=== PATIENT | male | born 1995 | race American Indian/Alaskan Native ===

== ENCOUNTER 2016-04-27 08:27 | Emergency (ER) | payer OTHER ==
[2016-04-27] MEDS ORDERED: ROCEPHIN IM ONE (12:55)
[2016-04-27] MEDS ORDERED: XYLOCAINE 1% MPF 5 mL INFILTRATI ONE (12:55)
[2016-04-27] MEDS ORDERED: FLAGYL PO ONE (12:55)
--- NOTE | 2016-04-27 12:55 | Emergency Department Report ---
ED Male HPI - General Chief complaint: Urogenital-Male Stated complaint: PENILE DISCHARGE Time Seen by Provider: 04/27/16 12:46 Source: patient Mode of arrival: Ambulatory Limitations: No Limitations - History of Present Illness Initial comments: Patient here complaining of penile discharge and burning 2 days. He said he had unprotected sex with a girl and she called them to let them know that he should go get checked out. He reports penile discharge is white. Denies any blood in his urine. Denies any fever or chills. Denies any urinary burning frequency or urgency. Denies any back or abdominal pain. Reports been going on for 2 days. Had an unprotected sex 4 days ago. He reports burning to his penile area at 6 out of 10. MD Complaint: penile discharge Onset/Timin -: days(s) Location: penis Radiation: none Severity scale (0 -10): 6 Quality: burning Consistency: constant Worsens with: none new sexual partner discharge. denies: swelling, mass, rash, urinary retention, blood in urine, dysuria, fever, nausea/vomiting, incontinence - Related Data Sexually active: Yes Allergies Allergy/AdvReac Type Severity Reaction Status Date / Time No Known Allergies Allergy Unverified 04/27/16 09:54 ED Review of Systems ROS: Stated complaint: PENILE DISCHARGE Other details as noted in HPI Comment: All other systems reviewed and negative Constitutional: denies: chills, fever ENT: denies: throat pain Respiratory: no symptoms reported Cardiovascular: denies: chest pain, palpitations, edema, syncope Gastrointestinal: denies: abdominal pain, nausea, vomiting Genitourinary: discharge. denies: urgency, dysuria, frequency, hematuria, testicular pain, testicular mass Musculoskeletal: denies: back pain, arthralgia Skin: denies: rash Neurological: denies: headache, weakness, numbness, paresthesias, confusion, abnormal gait ED Past Medical Hx - Past Medical History Previous Medical History?: No - Surgical History Past Surgical History?: No - Family History Family history: no significant - Social History Smoking Status: Never Smoker Substance Use Type: Alcohol ED Physical Exam - General Limitations: No Limitations General appearance: alert, in no apparent distress - Head Head exam: Present: atraumatic, normocephalic, normal inspection - Eye Eye exam: Present: normal appearance, PERRL, EOMI. Absent: periorbital swelling , periorbital tenderness Pupils: Present: normal accommodation - ENT ENT exam: Present: normal exam, normal orophraynx - Respiratory Respiratory exam: Present: normal lung sounds bilaterally. Absent: respiratory distress, chest wall tenderness - Cardiovascular Cardiovascular Exam: Present: regular rate, normal rhythm, normal heart sounds - GI/Abdominal GI/Abdominal exam: Present: soft, normal bowel sounds. Absent: distended, tenderness, guarding, rebound, rigid - exam: Present: normal inspection, urethral discharge. Absent: testicular tenderness, scrotal swelling, vertical testicular lie, other External exam: Present: normal external exam. Absent: erythema, swelling, lesions, lacerations, ecchymosis, bleeding - Extremities Exam Extremities exam: Present: normal inspection, full ROM, normal capillary refill. Absent: tenderness, pedal edema, joint swelling, calf tenderness - Back Exam Back exam: Present: normal inspection, full ROM. Absent: tenderness, CVA tenderness (R), CVA tenderness (L), muscle spasm, paraspinal tenderness, vertebral tenderness, rash noted - Neurological Exam Neurological exam: Present: alert, oriented X3, normal gait, reflexes normal. Absent: motor sensory deficit - Psychiatric Psychiatric exam: Present: normal affect, normal mood - Skin Skin exam: Present: warm, dry, intact, normal color. Absent: rash ED Course Vital Signs 04/27/16 04/27/16 09:45 13:46 Temperature 98.6 F Pulse Rate 64 61 Respiratory 19 16 Rate Blood Pressure 128/91 Blood Pressure 124/90 [Left] O2 Sat by Pulse 100 100 Oximetry - Reevaluation(s) Reevaluation #1: 04/27/16 13:28 Rocephin 250 mg im, flagyl 2grams and zithromaz 1 gram po for treatment of STD ED Medical Decision Making - Medical Decision Making Patient here reports penile discharge and burning to penis. He said he had unsafe sex and the person that he had sex with told him that he needs to go get checked out but didn't say whether or not they had a STD. Patient off to be treated empirically in emergency room for STD. Patient give Rocephin 250 mg IM , Flagyl 2 g by mouth and Zithromax 1 g by mouth in emergency room. Should instructed to refrain from drinking alcohol for 7 days as medication that he was given for STD can cause negative reaction. As instructed him to refrain from having sexual activity for the next 10 days. The patient that he needs to follow up with [facility] for STD check in 7-10 days. He voices understanding of discharge instruction discharged home in stable condition without any adverse reaction from medication Critical care attestation.: If time is entered above; I have spent that time in minutes in the direct care of this critically ill patient, excluding procedure time. ED Disposition Clinical Impression: Penile discharge, Concern about STD in male without diagnosis Disposition: DISCHARGED TO HOME OR SELFCARE Is pt being admited?: No Does the pt Need Aspirin: No Condition: Stable Instructions: Sexually Transmitted Diseases (ED), Safe Sex (ED) Additional Instructions: Please do drink any alcohol over the next week. Medication given in ED interacts negatively with alcohol Refrain from having sex over the next 10 days. follow up at [facility] in 7-10 days for STD check Referrals: [facility] [Outside] - 7-10 days Forms: Work/School Release Form(ED)
[2016-04-27] MEDS ORDERED: ZITHROMAX PO ONE (12:57)
[2016-04-27 13:48] VITALS: BP 124/90
== END 2016-04-27 13:46 | disposition home or self-care (01) ==
LOC: ED 08:27
DX: R36.9 Urethral discharge, unspecified (principal)
CPT/HCPCS: 96372; 99282; J0696

== ENCOUNTER 2016-12-03 07:21 | Emergency (ER) | payer SELFPAY ==
--- NOTE | 2016-12-03 09:51 | Emergency Department Report ---
HPI - General Chief Complaint: Allergic Reaction Time Seen by Provider: 12/03/16 09:36 - HPI HPI: Patient here report allergic reaction. He said he has been stung by wasp 2 days ago. Denies any respiratory symptoms. He said he is having swelling to left hand and right calf and left thigh. Denies any wheezing, stridor, or difficulty swallowing. He reports that he was having some throat tightness in triage area but denies any throat tightness to me. Denies any fever or chills. Denies any nausea or vomiting. Denies any shortness of breath or chest pain. He denies taking any medication. Patient said he has no pain. ED Past Medical Hx - Past Medical History Previous Medical History?: No - Surgical History Past Surgical History?: No - Family History Family history: no significant - Social History Smoking Status: Never Smoker Substance Use Type: None - Medications Home Medications: Home Medications Medication Instructions Recorded Confirmed Last Taken Type Cetirizine HCl [ZyrTEC] 10 mg PO QAM #5 capsule 12/03/16 Unknown Rx predniSONE [Deltasone] 50 mg PO QDAY #5 tab 12/03/16 Unknown Rx ED Review of Systems ROS: Stated complaint: INSECT STING ALLERGIC REACTION Other details as noted in HPI Comment: All other systems reviewed and negative Constitutional: no symptoms reported Eyes: denies: eye pain, eye discharge, vision change ENT: denies: ear pain, throat pain, congestion Respiratory: no symptoms reported Cardiovascular: denies: chest pain, palpitations, edema, paroxysmal nocturnal dyspnea Gastrointestinal: denies: abdominal pain, nausea, vomiting Musculoskeletal: arthralgia. denies: back pain, joint swelling, myalgia Skin: rash, other (swollen and itching in 2 left hand left thigh and right calf area) Neurological: denies: headache Physical Exam - Physical Exam Vital Signs: Vital Signs 12/03/16 07:24 Temperature 97.8 F Pulse Rate 52 L Blood Pressure 127/89 O2 Sat by Pulse 100 Oximetry Vital Signs 12/03/16 12/03/16 07:24 12:05 Temperature 97.8 F Pulse Rate 52 L Respiratory 18 Rate Blood Pressure 127/89 O2 Sat by Pulse 100 Oximetry General: This is a 21-year-old male well-nourished well-developed in no acute distress. Physical Exam: Head: Normocephalic, atraumatic, no abrasion, no bruising and no contusion. Eyes: Biateral pupils equal and reactive to light, bilateral EOM intact.. Bilateral conjunctival and sclera without injection, normal accommodation. Nose: Moist, erythema and congested with clear drainage Mouth: No pharyngeal exudate and erythema. Uvula is midline and oral airways patent. tongue is normal and no peritonsillar abscesses. Neck: Supple, No Cervical adenopathy, full range of motion and no C-spine tenderness. No swelling or tracheal deviation Cardiovascular: S1, S2. Bradycardic at 52 bpm and asymptomatic. Regular rhythm. No murmur. Capillary refill is less then 3 seconds. Lungs: Clear to auscultate bilaterally. No rhonchi, wheezes or rales. No chest wall tenderness. Normal work of breathing. MSK: Strength 5/5 in all extremities. No joint deformity or crepitus. Normal inspection. Full range of motion to all extremities Extremities: No clubbing, cyanosis or edema. +2 pulses. No neurovascular compromise Skin: Noted sparsely scattered small urticarial area to left hand left thigh and right calf area. Nontender to palpate. Psych: Normal mood and behavior. ED Course Vital Signs 12/03/16 07:24 Temperature 97.8 F Pulse Rate 52 L Blood Pressure 127/89 O2 Sat by Pulse 100 Oximetry Vital Signs 12/03/16 12/03/16 07:24 12:05 Temperature 97.8 F Pulse Rate 52 L Respiratory 18 Rate Blood Pressure 127/89 O2 Sat by Pulse 100 Oximetry - Reevaluation(s) Reevaluation #1: 12/03/16 12:12 She received Deltasone 60 mg by mouth in the emergency room for allergic reaction. ED Medical Decision Making - Medical Decision Making ED course: Status post wasp sting 2 days ago and here for evaluation. Physical findings for her to care area to left hand left thigh and left calf area. Single isolated lesions with point of entry to Center. Patient was given prednisone 60 mg by mouth and emergency room and discharged home with prescription for Zyrtec and prednisone. I discussed with him if he develop respiratory difficulties to include shortness breath, chest pain, stridor or wheezing, coughing sole of the neck and tongue and difficulty swallowing to return to the emergency room [facility] otherwise follow up with his primary care physician in 2 days. He does not have a primary care physician so he can follow up with [facility]. Critical care attestation.: If time is entered above; I have spent that time in minutes in the direct care of this critically ill patient, excluding procedure time. ED Disposition Clinical Impression: Urticaria Insect bite Qualifiers: Encounter type: initial encounter Qualified Code(s): W57.XXXA - Bitten or stung by nonvenomous insect and other nonvenomous arthropods, initial encounter Disposition: DC- TO HOME OR SELFCARE Is pt being admited?: No Does the pt Need Aspirin: No Condition: Stable Instructions: Urticaria (ED), Insect Bite or Sting (ED) Additional Instructions: Keep affected area clean and dry Follow up [facility] in the days Take medication as prescribed Prescriptions: Cetirizine HCl [ZyrTEC] 10 mg PO QAM #5 capsule predniSONE [Deltasone] 50 mg PO QDAY #5 tab Referrals: [facility] [place] [Outside] - 12/06/16 Forms: Work/School Release Form(ED)
[2016-12-03] MEDS ORDERED: DELTASONE PO ONE (10:53)
[2016-12-03 12:28] VITALS: BP 128/89
== END 2016-12-03 12:29 | disposition home or self-care (01) ==
LOC: ED 07:21
DX: L50.0 Allergic urticaria (principal); W57.XXXA Bitten or stung by nonvenomous insect and other nonvenomous arthropods, initial encounter
CPT/HCPCS: 99282; J7512

== ENCOUNTER 2017-08-28 10:09 | Emergency (ER) | payer SELFPAY ==
[2017-08-28 10:20] VITALS: BP 130/92
--- NOTE | 2017-08-28 10:55 | Emergency Department Report ---
Chief Complaint: Skin Rash Stated Complaint: RASH Time Seen by Provider: 08/28/17 10:28 - HPI History of Present Illness: Patient is a 21-year-old -[place] male who has a itching burning rash on his neck is been present off-and-on for 3-6 months. Patient states he was itching today he has not tried anything [id number] patient denies any fevers chills nausea vomiting diarrhea. - ROS Review of Systems: Systems are reviewed and are negative - Exam Vital Signs: Vital Signs 08/28/17 10:19 Temperature 98.8 F Pulse Rate 62 Respiratory 16 Rate Blood Pressure 130/92 O2 Sat by Pulse 100 Oximetry Physical Exam: Patient has a hypopigmented rash on the anterior and posterior neck extending into the upper chest MSE screening note: Focused history and physical exam performed. 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 Also try hydrocortisone cream on this area as well. Referrals: [facility] [Outside] - 3-5 Days
== END 2017-08-28 11:02 | disposition left against medical advice (07) ==
LOC: ED 10:09
DX: B36.0 Pityriasis versicolor (principal); Z53.21 Procedure and treatment not carried out due to patient leaving prior to being seen by health care provider

== ENCOUNTER 2019-01-01 09:10 | Emergency (ER) | payer OTHER ==
[2019-01-01 09:43] VITALS: BP 147/99
[2019-01-01] MEDS ORDERED: FAMOTIDINE 20 MG TAB PO ONE (11:48)
--- NOTE | 2019-01-01 11:52 | Emergency Department Report ---
ED Abdominal Pain HPI - General Chief Complaint: Abdominal Pain Stated Complaint: KIDNEY/STOMACH PAIN Time Seen by Provider: 01/01/19 10:39 Source: patient Mode of arrival: Ambulatory Limitations: No Limitations - History of Present Illness Initial Comments: This is a 23-year-old -[place] male who presents to the emergency room with left-sided abdominal pain for several months. He reports worsening pain for one week. Reports nausea, vomiting, diarrhea, and urinary frequency. He is currently taking NSAIDs with no improvement of symptoms. Patient states he has several abdominal workups with no diagnosis. 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 He denies fever, chills, hematuria, dysuria, penile discharge, or back pain. MD Complaint: abdominal pain Onset/Timin -: week(s) Location: L flank Radiation: epigastric Migration to: no migration Severity scale (0 -10): 9 Quality: cramping, burning Consistency: intermittent Improves With: nothing Worsens With: eating Associated Symptoms: denies other symptoms Treatments Prior to Arrival: NSAIDs - Related Data Previous Rx's Medication Instructions Recorded Last Taken Type Cetirizine HCl [ZyrTEC] 10 mg PO QAM #5 capsule 12/03/16 Unknown Rx predniSONE [Deltasone] 50 mg PO QDAY #5 tab 12/03/16 Unknown Rx Omeprazole 40 mg PO DAILY #30 capsule. 01/01/19 Unknown Rx Allergies Allergy/AdvReac Type Severity Reaction Status Date / Time No Known Allergies Allergy Verified 08/28/17 10:19 ED Review of Systems ROS: Stated complaint: KIDNEY/STOMACH PAIN Other details as noted in HPI Constitutional: denies: chills, fever Respiratory: denies: cough, shortness of breath, wheezing Cardiovascular: denies: chest pain, palpitations Gastrointestinal: abdominal pain, nausea, vomiting, diarrhea Genitourinary: frequency. denies: urgency, dysuria Skin: denies: rash, lesions Neurological: denies: headache, weakness, paresthesias Psychiatric: denies: anxiety, depression ED Past Medical Hx - Past Medical History Previous Medical History?: No - Surgical History Past Surgical History?: No - Social History Smoking Status: Current Every Day Smoker Substance Use Type: Alcohol - Medications Home Medications: Home Medications Medication Instructions Recorded Confirmed Last Taken Type Cetirizine HCl [ZyrTEC] 10 mg PO QAM #5 capsule 12/03/16 Unknown Rx predniSONE [Deltasone] 50 mg PO QDAY #5 tab 12/03/16 Unknown Rx Omeprazole 40 mg PO DAILY #30 capsule. 01/01/19 Unknown Rx ED Physical Exam - General Limitations: No Limitations General appearance: alert, in no apparent distress - Respiratory Respiratory exam: Present: normal lung sounds bilaterally. Absent: respiratory distress, wheezes, rales, rhonchi, stridor, chest wall tenderness - Cardiovascular Cardiovascular Exam: Present: regular rate, normal rhythm. Absent: systolic murmur, diastolic murmur, rubs, gallop - GI/Abdominal GI/Abdominal exam: Present: soft, tenderness (LUQ), normal bowel sounds. Absent: distended, guarding, rebound, rigid, organomegaly - Back Exam Back exam: Absent: CVA tenderness (R), CVA tenderness (L) - Neurological Exam Neurological exam: Present: alert, oriented X3 - Psychiatric Psychiatric exam: Present: normal affect, normal mood - Skin Skin exam: Present: warm, dry, intact, normal color. Absent: rash ED Course Vital Signs 01/01/19 01/01/19 09:39 11:34 Temperature 97.8 F Pulse Rate 103 H Respiratory 20 Rate Blood Pressure 147/99 O2 Sat by Pulse 100 99 Oximetry ED Medical Decision Making - Lab Data Result diagrams: 01/01/19 12:06 01/01/19 12:06 Lab Results 01/01/19 01/01/19 Range/Units 12:06 12:06 WBC 3.2 L (4.5-11.0) K/mm3 RBC 5.51 H (3.65-5.03) M/mm3 Hgb 15.8 H (11.8-15.2) gm/dl Hct 47.1 H (35.5-45.6) % MCV 86 (84-94) fl MCH 29 (28-32) pg MCHC 34 (32-34) % RDW 13.4 (13.2-15.2) % Plt Count 242 (140-440) K/mm3 Lymph % (Auto) 43.3 H (13.4-35.0) % [place] % (Auto) 6.2 (0.0-7.3) % Eos % (Auto) 4.9 H (0.0-4.3) % Baso % (Auto) 2.0 H (0.0-1.8) % Lymph # 1.4 (1.2-5.4) K/mm3 [place] # 0.2 (0.0-0.8) K/mm3 Eos # 0.2 (0.0-0.4) K/mm3 Baso # 0.1 (0.0-0.1) K/mm3 Seg Neutrophils % 43.6 (40.0-70.0) % Seg Neutrophils # 1.4 L (1.8-7.7) K/mm3 Sodium 143 (137-145) mmol/L Potassium 4.5 (3.6-5.0) mmol/L Chloride 99.3 (98-107) mmol/L Carbon Dioxide 27 (22-30) mmol/L Anion Gap 21 mmol/L BUN 8 L (9-20) mg/dL Creatinine 0.9 (0.8-1.5) mg/dL Estimated GFR > 60 ml/min BUN/Creatinine Ratio 9 % Glucose 103 H (75-100) mg/dL Calcium 9.9 (8.4-10.2) mg/dL Total Bilirubin 0.50 (0.1-1.2) mg/dL AST 28 (5-40) units/L ALT 16 (7-56) units/L Alkaline Phosphatase 80 (35-129) units/L Total Protein 8.6 H (6.3-8.2) g/dL Albumin 5.5 H (3.9-5) g/dL Albumin/Globulin Ratio 1.8 % - EKG Data -: No EKG Interpreted by Me (EKG interpreted by the attending) EKG shows normal: sinus rhythm (sinus arrhythmia) - Radiology Data Radiology results: report reviewed CT ABDOMEN AND PELVIS WITHOUT CONTRAST HISTORY: Left-sided abdominal pain COMPARISON: None TECHNIQUE: Routine abdominal and pelvic CT exam performed without contrast. Lack of intravenous contrast limits evaluation of the vascular and solid organs.. All CT scans at this location are performed using CT dose reduction for ALARA by means of automated exposure control. FINDINGS: CT ABDOMEN: Lung Bases: No significant abnormality. Liver: No significant abnormality. Biliary: No significant abnormality. Spleen: No significant abnormality. Unenlarged. Pancreas: No significant abnormality. Adrenals: No significant abnormality. Kidneys: No stones, pelvocaliectasis, ureterectasis. No perinephric or periureteral stranding. Lymphatics: No lymphadenopathy. Vasculature: No significant abnormality. Bowel/Peritoneum: No significant abnormality. No free air. No free fluid. Normal appendix. CT PELVIC: : No significant abnormality. Lymphatics: No lymphadenopathy. Osseous Structures: No aggressive appearing osseous lesions. Additional Findings: None IMPRESSION: 1. No acute findings. No findings to explain left-sided abdominal pain. No urinary stones or hydronephrosis. - Medical Decision Making Patient is stable and was examined by me. Vitals stable. Obtained CMP, CBC, & UA. Leukopenia, All other labs unremarkable. CT of abdomen and pelvis negative for acute findings. Findings are susceptible of viral Palencia enteritis. Given Pepcid while in the ER. Patient reports improvement of symptoms. Start omeprazole. Instructed to take [id number] Imodium if diarrhea recur. Increase fluid intake. Discussed plan with patient and agreed to plan. No further questions noted by the patient. Discharged home in stable condition. F ollow up with PCP in 2-3 days. Critical care attestation.: If time is entered above; I have spent that time in minutes in the direct care of this critically ill patient, excluding procedure time. ED Disposition Clinical Impression: Gastroenteritis Abdominal pain Qualifiers: Abdominal location: generalized Qualified Code(s): R10.84 - Generalized abdomin al pain Disposition: TO HOME OR SELFCARE Is pt being admited?: No Condition: Stable Instructions: Gastroenteritis (ED) Additional Instructions: Frequent hand washing is important to reduce spread. Prompt disinfection of contaminated surfaces with household chlorine bleach- based hoop maker machine and washing of soiled clothing and bedding should be advised. If food or water is thought to be contaminated, it should be avoided. Increase fluid intake. Drinks high in sugars such as carbonated soft drinks, fruit juice, and highly sugared liquids should be avoided. Prescriptions: Omeprazole 40 mg PO DAILY #30 capsule. Referrals: [facility] [place] [Outside] - 3-5 Days [facility] [Outside] - 3-5 Days [facility] [Outside] - 3-5 Days Forms: Work/School Release Form(ED) Time of Disposition: 15:02
[2019-01-01 12:39] LABS: Basophils # (Auto) 0.1 K/mm3 (0.0-0.1); Eosinophils # (Auto) 0.2 K/mm3 (0.0-0.4); Eosinophils % (Auto) 4.9 % (0.0-4.3); Hematocrit 47.1 % (35.5-45.6); Hemoglobin 15.8 gm/dl (11.8-15.2); Lymphocytes # (Auto) 1.4 K/mm3 (1.2-5.4); Lymphocytes % (Auto) 43.3 % (13.4-35.0); Mean Corpuscular HGB Conc 34 % (32-34); Mean Corpuscular Volume 86 fl (84-94); Monocytes # (Auto) 0.2 K/mm3 (0.0-0.8); Monocytes % (Auto) 6.2 % (0.0-7.3); Platelet Count 242 K/mm3 (140-440); Red Blood Count 5.51 M/mm3 (3.65-5.03); Red Cell Distribution Width 13.4 % (13.2-15.2)
[2019-01-01 13:03] LABS: Alanine Aminotransferase 16 units/L (7-56); Albumin 5.5 g/dL (3.9-5); BUN/Creatinine Ratio 9; Blood Urea Nitrogen 8 mg/dL (9-20); Calcium 9.9 mg/dL (8.4-10.2); Hemolysis Index 5
--- NOTE | 2019-01-01 14:46 | Cat Scan Report ---
CT ABDOMEN AND PELVIS WITHOUT CONTRAST HISTORY: Left-sided abdominal pain COMPARISON: None TECHNIQUE: Routine abdominal and pelvic CT exam performed without contrast. Lack of intravenous cont rast limits evaluation of the vascular and solid organs.. All CT scans at this location are performed using CT dose reduction for ALARA by means of automated exposure control. FINDINGS: CT ABDOMEN: Lung Bases: No significant abnormality. Liver: No significant abnormality. Biliary: No significant abnormality. Spleen: No significant abnormality. Unenlarged. Pancreas: No significant abnormality. Adrenals: No significant abnormality. Kidneys: No stones, pelvocaliectasis, ureterectasis. No perinephric or periureteral stranding. Lymphatics: No lymphadenopathy. Vasculature: No significant abnormality. Bowel/Peritoneum: No significant abnormality. No free air. No free fluid. Normal appendix. CT PELVIC: : No significant abnormality. Lymphatics: No lymphadenopathy. Osseous Structures: No aggressive appearing osseous lesions. Additional Findings: None IMPRESSION: 1. No acute findings. No findings to explain left-sided abdominal pain. No urinary stones or hydronep hrosis. Signer Name: Quang Perez MD Signed: 01/01/2019 2:41 PM Workstation Name: [id number]
--- NOTE | 2019-01-02 09:06 | XRay Report ---
CHEST 2 VIEWS INDICATION: Chest Pain. COMPARISON: 01/28/2018 FINDINGS: Support devices: None. Heart: Within normal limits. Lungs: No acute air space or interstitial disease. Pleura: No significant pleural effusion. No pneumothorax. Additional findings: None. IMPRESSION: 1. No acute findings. Signer Name: Yuri Snowden MD Signed: 01/01/2019 10:10 AM Workstation Name: [id number]
== END 2019-01-01 15:14 | disposition home or self-care (01) ==
LOC: ED 09:10
DX: K52.9 Noninfective gastroenteritis and colitis, unspecified (principal); F17.200 Nicotine dependence, unspecified, uncomplicated
CPT/HCPCS: 36415; 71046; 74176; 80053; 85025; 93005; 93010

== ENCOUNTER 2019-07-20 18:33 | Emergency (ER) | payer SELFPAY ==
--- NOTE | 2019-07-20 19:56 | XRay Report ---
CHEST 2 VIEWS 194 INDICATION / CLINICAL INFORMATION: SOB, fever, abdominal pain, duration 2 weeks COMPARISON: 01/01/2019 FINDINGS: SUPPORT DEVICES: None. HEART / MEDIASTINUM: No significant abnormality. LUNGS / PLEURA: No significant pulmonary or pleural abnormality. No pneumothorax. ADDITIONAL FINDINGS: No significant additional findings. IMPRESSION: No significant acute abnormality Signer Name: Albin Abernathy MD Signed: 07/20/2019 7:51 PM Workstation Name: [id number]
--- NOTE | 2019-07-20 21:38 | Emergency Department Report ---
Minor Respiratory - HPI Chief Complaint: Upper Respiratory Infection Stated Complaint: SOB ED Review of Systems ROS: Stated complaint: SOB Other details as noted in HPI ED Past Medical Hx - Past Medical History Previous Medical History?: No - Surgical History Past Surgical History?: No - Social History Smoking Status: Never Smoker Substance Use Type: Alcohol, Marijuana - Medications Home Medications: Home Medications Medication Instructions Recorded Confirmed Last Taken Type Cetirizine HCl [ZyrTEC] 10 mg PO QAM #5 capsule 12/03/16 Unknown Rx predniSONE [Deltasone] 50 mg PO QDAY #5 tab 12/03/16 Unknown Rx Omeprazole 40 mg PO DAILY #30 capsule.dr 01/01/19 Unknown Rx Minor Respiratory Exam - Exam General: Vital signs noted. No distress. Alert and acting appropriately. Neurologic: Alert and oriented, no deficits. Musculoskeletal: Unremarkable. ED Course Vital Signs 07/20/19 18:38 Temperature 98 F Pulse Rate 97 H Respiratory 16 Rate Blood Pressure 136/95 [Right] O2 Sat by Pulse 100 Oximetry ED Medical Decision Making - Radiology Data Radiology results: report reviewed Referring Physician:JEREMÍAS SHARIFPatient Name:SAW POPEPatient ID:[id number] of :[id number]:MaleAccession:[id number] Date:2022-76-74Zwiryl Status:[place] [address] XRay Report Signed Patient: SAW POPE MR#: [id number] : 1995 Acct:[id number] Age/Sex: 23 / M ADM Date: 07/20/19 Loc: ED Attending Dr: Ordering Physician: JEREMÍAS SHARIF MD Date of Service: 07/20/19 Procedure(s): XR chest routine 2V Accession Number(s): [id number] cc: JEREMÍAS SHARIF MD Fluoro Time In Minutes: CHEST 2 VIEWS 1941 INDICATION / CLINICAL INFORMATION: SOB, fever, abdominal pain, duration 2 weeks COMPARISON: 01/01/2019 FINDINGS: SUPPORT DEVICES: None. HEART / MEDIASTINUM: No significant abnormality. LUNGS / PLEURA: No significant pulmonary or pleural abnormality. No pneumothorax. ADDITIONAL FINDINGS: No significant additional findings. IMPRESSION: No significant acute abnormality Signer Name: Albin Abernathy MD Signed: 07/20/2019 7:51 PM Workstation Name: [id number] Transcribed By: GJ Dictated By: Albin Abernathy MD Electronically Authenticated By: Albin Abernathy MD Signed Date/Time: 07/20/191950 DD/ 48 TD/TT: Critical care attestation.: If time is entered above; I have spent that time in minutes in the direct care of this critically ill patient, excluding procedure time. ED Disposition Condition: Stable
--- NOTE | 2019-07-20 21:43 | Emergency Department Report ---
ED General Adult HPI - General Chief complaint: Upper Respiratory Infection Stated complaint: SOB PUI?: No Source: patient Mode of arrival: Ambulatory Limitations: No Limitations - History of Present Illness Initial comments: 23-year-old -[place]ian male presents to the emergency room complaining of abdominal pain disease and shortness of breath. Patient reports his last BM was yesterday but just a little. Patient denies any cough states he just has some shortness of breath but cannot really explain. Patient reports he has been quarantine. Patient does admit to smoking weed and having nausea and vomiting. Patient was recently seen here back in January 01 with a full abdominal work-up with no CT findings of anything acutely. At that time patient was placed on omeprazole and referral to gastroenterology. Patient states he still not f ollowed up with gastroenterology secondary to having no insurance. Patient denies any past medical history. Patient denies any coughing. Patient reports he does not have a primary care provider. And patient reports has been taken Tylenol for back pain. Patient does admit to drinking water and eating vegetables. - Related Data Previous Rx's Medication Instructions Recorded Last Taken Type Cetirizine HCl [ZyrTEC] 10 mg PO QAM #5 capsule 12/03/16 Unknown Rx predniSONE [Deltasone] 50 mg PO QDAY #5 tab 12/03/16 Unknown Rx Omeprazole 40 mg PO DAILY #30 capsule. 01/01/19 Unknown Rx Dicyclomine [Bentyl] 10 mg PO QID #12 capsule 07/20/19 Unknown Rx Docusate Sodium [Colace] 100 mg PO BID PRN 10 Days #20 07/20/19 Unknown Rx capsule Famotidine [Pepcid] 20 mg PO BID 10 Days #20 tablet 07/20/19 Unknown Rx Allergies Allergy/AdvReac Type Severity Reaction Status Date / Time No Known Allergies Allergy Verified 08/28/17 10:19 ED Review of Systems ROS: Stated complaint: SOB Other details as noted in HPI ED Past Medical Hx - Past Medical History Previous Medical History?: No - Surgical History Past Surgical History?: No - Social History Smoking Status: Never Smoker Substance Use Type: Alcohol, Marijuana - Medications Home Medications: Home Medications Medication Instructions Recorded Confirmed Last Taken Type Cetirizine HCl [ZyrTEC] 10 mg PO QAM #5 capsule 12/03/16 Unknown Rx predniSONE [Deltasone] 50 mg PO QDAY #5 tab 12/03/16 Unknown Rx Omeprazole 40 mg PO DAILY #30 capsule. 01/01/19 Unknown Rx Dicyclomine [Bentyl] 10 mg PO QID #12 capsule 07/20/19 Unknown Rx Docusate Sodium [Colace] 100 mg PO BID PRN 10 Days #20 07/20/19 Unknown Rx capsule Famotidine [Pepcid] 20 mg PO BID 10 Days #20 tablet 07/20/19 Unknown Rx ED Physical Exam - General Limitations: No Limitations ED Course Vital Signs 07/20/19 18:38 Temperature 98 F Pulse Rate 97 H Respiratory 16 Rate Blood Pressure 136/95 [Right] O2 Sat by Pulse 100 Oximetry ED Medical Decision Making - Lab Data Result diagrams: 07/20/19 21:55 07/20/19 21:55 - Radiology Data Radiology results: report reviewed Referring Physician:JEREMÍAS SHARIFPatient Name:SAW POPEPatient ID:[id number] of :0722-11-16Rrx:MaleAccession:[id number] Date:0825-48-52Gnoqpb Status:Finalized Findings [facility] [address] [place] [address] XRay Report Signed Patient: SAW POPE MR#: [id number] : 1995 Acct:[id number] Age/Sex: 23 / M ADM Date: 07/20/19 Loc: ED Attending Dr: Ordering Physician: JEREMÍAS SHARIF MD Date of Service: 07/20/19 Procedure(s): XR chest routine 2V Accession Number(s): [id number] cc: ED MD CHANTE Fluoro Time In Minutes: CHEST 2 VIEWS 1941 INDICATION / CLINICAL INFORMATION: SOB, fever, abdominal pain, duration 2 weeks COMPARISON: 01/01/2019 FINDINGS: SUPPORT DEVICES: None. HEART / MEDIASTINUM: No significant abnormality. LUNGS / PLEURA: No significant pulmonary or pleural abnormality. No pneumothorax. ADDITIONAL FINDINGS: No significant additional findings. IMPRESSION: No significant acute abnormality Signer Name: Albin Abernathy MD Signed: 07/20/2019 7:51 PM Workstation Name: [id number] Transcribed By: GJ Dictated By: Albin Abernathy MD Electronically Authenticated By: Albin Abernathy MD Signed Date/Time: 07/20/191950 DD/ 48 TD/TT: Print Report Referring Physician:RAJESH KABAPatient Name:SAW POPEPatient ID:[id number] of :[id number]:MaleAccession:[id number] Date:7524-85-83Qbsdtz Status:Finalized Findings [facility] [address] [place] [address] XRay Report Signed Patient: SAW POPE MR#: [id number] : 1995 Acct:[id number] Age/Sex: 23 / M ADM Date: 07/20/19 Loc: ED Attending Dr: Ordering Physician: DAV CORONA Date of Service: 07/20/19 Procedure(s): XR abdomen 1V ap Accession Number(s): [id number] cc: DAV CORONA Fluoro Time In Minutes: ABDOMEN AP SUPINE 2155 INDICATION: Fever, abdominal pain, shortness of breath, cough COMPARISON: None available. FINDINGS: Bowel gas pattern is unremarkable. Densities in the right pelvis may be ingested tablets though could be artifactual. No definite urinary tract calculi are seen. Signer Name: Albin Abernathy MD Signed: 07/20/2019 10:11 PM Workstation Name: [id number] Transcribed By: GJ Dictated By: Albin Abernathy MD Electronically Authenticated By: Albin Abernathy MD Signed Date/Time: 07/20/192210 DD/ 08 TD/TT: - Medical Decision Making 23-year-old -[place]ian male presents to the emergency room complaining of abdominal pain disease and shortness of breath. Patient reports his last BM was yesterday but just a little. Patient denies any cough states he just has some shortness of breath but cannot really explain. Patient reports he has been quarantine. Patient does admit to smoking weed and having nausea and vomiting. Patient was recently seen here back in January 01 with a full abdominal work-up with no CT findings of anything acutely. At that time patient was placed on omeprazole and referral to gastroenterology. Patient states he still not followed up with gastroenterology secondary to having no insurance. Patient denies any past medical history. Patient denies any coughing. Patient reports he does not have a primary care provider. And patient reports has been taken Tylenol for back pain. Patient does admit to drinking water and eating vegetables. Critical care attestation.: If time is entered above; I have spent that time in minutes in the direct care of this critically ill patient, excluding procedure time. ED Disposition Clinical Impression: Chronic generalized abdominal pain Disposition: TO HOME OR SELFCARE Is pt being admited?: No Does the pt Need Aspirin: No Condition: Stable Instructions: Abdominal Pain (ED) Additional Instructions: Take meds as prescribed. Follow-up with a booky I have listed their information below. I have also entered a primary care provider Dr. Cayetano Cedeno. Prescriptions: Dicyclomine [Bentyl] 10 mg PO QID #12 capsule Docusate Sodium [Colace] 100 mg PO BID PRN 10 Days #20 capsule PRN Reason: Constipation Famotidine [Pepcid] 20 mg PO BID 10 Days #20 tablet Referrals: NEO PAGE MD [Primary Care Provider] - 3-5 Days [facility] [Provider Group] - 3-5 Days VASYL SANCHES MD [Staff Physician] - 3-5 Days
[2019-07-20 22:14] LABS: Basophils # (Auto) 0.1 K/mm3 (0.0-0.1); Basophils % (Auto) 2.8 % (0.0-1.8); Eosinophils # (Auto) 0.1 K/mm3 (0.0-0.4); Eosinophils % (Auto) 3.4 % (0.0-4.3); Hematocrit 44.1 % (35.5-45.6); Hemoglobin 14.4 gm/dl (11.8-15.2); Lymphocytes # (Auto) 1.3 K/mm3 (1.2-5.4); Mean Corpuscular HGB Conc 33 % (32-34); Mean Corpuscular Volume 84 fl (84-94); Monocytes # (Auto) 0.1 K/mm3 (0.0-0.8); Monocytes % (Auto) 4.8 % (0.0-7.3); Platelet Count 238 K/mm3 (140-440); Red Blood Count 5.24 M/mm3 (3.65-5.03); Red Cell Distribution Width 14.2 % (13.2-15.2)
--- NOTE | 2019-07-20 22:15 | XRay Report ---
ABDOMEN AP SUPINE 4316 INDICATION: Fever, abdominal pain, shortness of breath, cough COMPARISON: None available. FINDINGS: Bowel gas pattern is unremarkable. Densities in the right pelvis may be ingested tablets th ough could be artifactual. No definite urinary tract calculi are seen. Signer Name: Albin Abernathy MD Signed: 07/20/2019 10:11 PM Workstation Name: [email or web address]
[2019-07-20 22:35] LABS: Alanine Aminotransferase 23 units/L (7-56); Albumin 4.8 g/dL (3.9-5); BUN/Creatinine Ratio 8; Blood Urea Nitrogen 6 mg/dL (9-20); Calcium 9.3 mg/dL (8.4-10.2); Hemolysis Index 6
[2019-07-20 23:58] VITALS: BP 127/94
== END 2019-07-20 23:57 | disposition home or self-care (01) ==
LOC: ED 18:33
DX: R10.84 Generalized abdominal pain (principal); G89.29 Other chronic pain; F12.90 Cannabis use, unspecified, uncomplicated; Z79.899 Other long term (current) drug therapy
CPT/HCPCS: 36415; 71046; 74018; 80053; 83690; 85025

== ENCOUNTER 2019-10-08 20:22 | Emergency (ER) | payer SELFPAY ==
[2019-10-08 21:58] LABS: Basophils # (Auto) 0.1 K/mm3 (0.0-0.1); Basophils % (Auto) 1.4 % (0.0-1.8); Eosinophils # (Auto) 0.1 K/mm3 (0.0-0.4); Eosinophils % (Auto) 2.5 % (0.0-4.3); Hematocrit 44.5 % (35.5-45.6); Hemoglobin 15.6 gm/dl (11.8-15.2); Lymphocytes # (Auto) 1.6 K/mm3 (1.2-5.4); Lymphocytes % (Auto) 36.1 % (13.4-35.0); Mean Corpuscular HGB Conc 35 % (32-34); Mean Corpuscular Volume 83 fl (84-94); Monocytes # (Auto) 0.3 K/mm3 (0.0-0.8); Monocytes % (Auto) 7.1 % (0.0-7.3); Platelet Count 225 K/mm3 (140-440); Red Blood Count 5.35 M/mm3 (3.65-5.03); Red Cell Distribution Width 13.3 % (13.2-15.2)
[2019-10-08] MEDS ORDERED: METOCLOPRAMIDE 10 MG/2 ML INJ IV ONE (21:59)
[2019-10-08] MEDS ORDERED: KETOROLAC 30 MG/1 ML INJ IV ONE (21:59)
[2019-10-08] MEDS ORDERED: FAMOTIDINE 20 MG/2 ML INJ IV ONE (21:59)
[2019-10-08] MEDS ORDERED: diphenhydrAMINE 50 MG/ML VIAL IV ONE (21:59)
[2019-10-08] MEDS ORDERED: SODIUM CHLORIDE 0.9% 1000 ML 1,000 ML IV ONE (21:59)
[2019-10-08 22:14] LABS: Alanine Aminotransferase 28 units/L (7-56); Albumin 5.4 g/dL (3.9-5); BUN/Creatinine Ratio 6; Blood Urea Nitrogen 6 mg/dL (9-20); Calcium 10.2 mg/dL (8.4-10.2); Hemolysis Index 7
--- NOTE | 2019-10-08 22:59 | Emergency Department Report ---
ED N/V/D HPI - General Chief complaint: Abdominal Pain Stated complaint: NAUSEA,VOMITING Source: patient, family, RN notes reviewed Mode of arrival: Wheelchair Limitations: No Limitations - History of Present Illness Initial comments: Patient is a 23-year-old -[place] male with a history of chronic marijuana abuse and chronic cyclic vomiting syndrome who presents to the ED with acute exacerbation of his chronic cyclic vomiting syndrome for the last 1 week, worse in the last 2 days. Patient states that he has not been able to keep anything down including food or water. Patient also complains of mild epigastric pain and lower back pain. Patient denies chest pain, shortness of breath, dizziness, syncope, dysuria, urinary frequency and urgency, hematemesis, hematochezia, headache, diarrhea, cough or sore throat and testicular pain. MD complaint: nausea, vomiting, abdominal pain, other (lower back) -: Sudden, week(s) (1) Description of Vomiting: watery Associated Abdominal Pain: Yes (epigastric pain) Location: epigastric Radiation: none Severity: moderate Pain Scale: 6 Quality: cramping, aching Consistency: intermittent Improves with: none Worsens with: eating, vomiting Context: other (Illegal drug abuse, marijuana) Associated Symptoms: denies other symptoms, loss of appetite, malaise, nausea/vomiting. denies: myalgias, chest pain, cough, diaphoresis, fever/chills, headaches, rash, dysuria, shortness of breath, syncope, weakness, other - Related Data Previous Rx's Medication Instructions Recorded Last Taken Type Cetirizine HCl [ZyrTEC] 10 mg PO QAM #5 capsule 12/03/16 Unknown Rx predniSONE [Deltasone] 50 mg PO QDAY #5 tab 12/03/16 Unknown Rx Omeprazole 40 mg PO DAILY #30 capsule. 01/01/19 Unknown Rx Dicyclomine [Bentyl] 10 mg PO QID #12 capsule 07/20/19 Unknown Rx Docusate Sodium [Colace] 100 mg PO BID PRN 10 Days #20 07/20/19 Unknown Rx capsule Famotidine [Pepcid] 20 mg PO BID 10 Days #20 tablet 07/20/19 Unknown Rx Dicyclomine [Bentyl] 20 mg PO Q6H PRN #30 tablet 10/08/19 Unknown Rx Famotidine [Pepcid] 20 mg PO BID #60 tablet 10/08/19 Unknown Rx Ondansetron [Zofran Odt] 4 mg PO Q6HR PRN #24 tab.rapdis 10/08/19 Unknown Rx Allergies Allergy/AdvReac Type Severity Reaction Status Date / Time No Known Allergies Allergy Verified 08/28/17 10:19 ED Review of Systems ROS: Stated complaint: NAUSEA,VOMITING Other details as noted in HPI Constitutional: denies: chills, fever Eyes: denies: eye pain, eye discharge, vision change ENT: denies: ear pain, throat pain Respiratory: denies: cough, shortness of breath, wheezing Cardiovascular: denies: chest pain, palpitations Endocrine: no symptoms reported Gastrointestinal: nausea, vomiting. denies: abdominal pain, diarrhea, constipation, hematemesis, hematochezia Genitourinary: denies: urgency, dysuria Musculoskeletal: denies: back pain, joint swelling, arthralgia Skin: denies: rash, lesions Neurological: denies: headache, weakness, paresthesias Psychiatric: denies: anxiety, depression Hematological/Lymphatic: denies: easy bleeding, easy bruising ED Past Medical Hx - Past Medical History Previous Medical History?: No - Surgical History Past Surgical History?: No - Social History Smoking Status: Never Smoker Substance Use Type: Alcohol, Marijuana - Medications Home Medications: Home Medications Medication Instructions Recorded Confirmed Last Taken Type Cetirizine HCl [ZyrTEC] 10 mg PO QAM #5 capsule 12/03/16 Unknown Rx predniSONE [Deltasone] 50 mg PO QDAY #5 tab 12/03/16 Unknown Rx Omeprazole 40 mg PO DAILY #30 capsule. 01/01/19 Unknown Rx Dicyclomine [Bentyl] 10 mg PO QID #12 capsule 07/20/19 Unknown Rx Docusate Sodium [Colace] 100 mg PO BID PRN 10 Days #20 07/20/19 Unknown Rx capsule Famotidine [Pepcid] 20 mg PO BID 10 Days #20 tablet 07/20/19 Unknown Rx Dicyclomine [Bentyl] 20 mg PO Q6H PRN #30 tablet 10/08/19 Unknown Rx Famotidine [Pepcid] 20 mg PO BID #60 tablet 10/08/19 Unknown Rx Ondansetron [Zofran Odt] 4 mg PO Q6HR PRN #24 tab.rapdis 10/08/19 Unknown Rx ED Physical Exam - General Limitations: No Limitations General appearance: alert, in no apparent distress - Head Head exam: Present: atraumatic, normocephalic, normal inspection - Eye Eye exam: Present: normal appearance, PERRL, EOMI Pupils: Present: normal accommodation - ENT ENT exam: Present: normal exam, normal orophraynx, mucous membranes moist, TM's normal bilaterally, normal external ear exam - Neck Neck exam: Present: normal inspection, full ROM. Absent: tenderness, meningismus, lymphadenopathy, thyromegaly - Respiratory Respiratory exam: Present: normal lung sounds bilaterally. Absent: respiratory distress, wheezes, rales, rhonchi, chest wall tenderness, accessory muscle use - Cardiovascular Cardiovascular Exam: Present: regular rate, normal rhythm, normal heart sounds. Absent: systolic murmur, diastolic murmur, rubs, gallop - GI/Abdominal GI/Abdominal exam: Present: soft, normal bowel sounds. Absent: tenderness, guarding, rebound, hyperactive bowel sounds, hypoactive bowel sounds, organomegaly, mass - Extremities Exam Extremities exam: Present: normal inspection, full ROM, normal capillary refill. Absent: tenderness, pedal edema, joint swelling, calf tenderness - Back Exam Back exam: Present: normal inspection, full ROM. Absent: tenderness, CVA tenderness (R), CVA tenderness (L), muscle spasm, paraspinal tenderness, v ertebral tenderness - Neurological Exam Neurological exam: Present: alert, oriented X3, CN II-XII intact, normal gait, reflexes normal - Psychiatric Psychiatric exam: Present: normal affect, normal mood - Skin Skin exam: Present: warm, dry, intact, normal color. Absent: rash ED Course Vital Signs 10/08/19 20:28 Pulse Rate 123 H Respiratory 20 Rate Blood Pressure 144/98 O2 Sat by Pulse 97 Oximetry ED Medical Decision Making - Lab Data Result diagrams: 10/08/19 21:29 10/08/19 21:29 - Medical Decision Making This is a 23-year-old -[place] male with a history of chronic marijuana abuse and chronic cyclic vomiting syndrome who presents to the ED with acute exacerbation of his chronic cyclic vomiting syndrome for the last 1 week, worse in the last 2 days. Patient states that he has not been able to keep anything down including food or water. Patient also complains of mild epigastric pain and lower back pain. In the ED, patient is alert and oriented x3 and is not in distress. Patient was treated for pain in the ED, also given antiemetics, antacids and normal saline 1 L IV bolus x1. Patient was given oral fluids and passed a fluid challenge after the treatment. Lab test results were reviewed and are all nonactionable. Patient vital signs are stable. Patient will discharge home and advised to maintain a clear liquid diet for 12 to 24 hours, take medication as needed and follow-up with his primary care physician in 3 to 5 days for reevaluation or return to the ED immediately if symptoms get worse. - Differential Diagnosis gastritis; gastroenteritis; cyclic vomiting; dehydration; gerd Critical care attestation.: If time is entered above; I have spent that time in minutes in the direct care of this critically ill patient, excluding procedure time. ED Disposition Clinical Impression: Nausea and vomiting in adult patient, Marijuana abuse, continuous, Cyclic vomiting syndrome, Dehydration Disposition: DC-01 TO HOME OR SELFCARE Is pt being admited?: No Does the pt Need Aspirin: No Condition: Stable Instructions: Gastritis (ED), Acute Nausea and Vomiting (ED) Additional Instructions: Maintain a clear liquid diet for 12 to 24 hours, take medication as advised, drink plenty of fluids and follow-up with your primary care physician in 5 to 7 days for reevaluation. Consider quitting use of marijuana in order to control nausea and vomiting episodes. Return to the ED immediately if symptoms get worse. Prescriptions: Dicyclomine [Bentyl] 20 mg PO Q6H PRN #30 tablet PRN Reason: Abdominal pain Famotidine [Pepcid] 20 mg PO BID #60 tablet Ondansetron [Zofran Odt] 4 mg PO Q6HR PRN #24 tab.rapdis PRN Reason: Nausea Referrals: [facility] [Provider Group] - 3-5 Days Time of Disposition: 23:00 Print Language: ROMANIAN
[2019-10-08 23:16] VITALS: BP 144/98
[2019-10-08 23:47] LABS: Bacteria,Urine 1+ /HPF (Negative); Bilirubin,Urine NEG (Negative); Blood,Urine SM (Negative); Color,Urine Colorless (Yellow); Protein,Urine <15 mg/dL mg/dL (Negative); Urobilinogen,Urine < 2.0 mg/dL (<2.0)
== END 2019-10-09 00:40 | disposition home or self-care (01) ==
LOC: ED 20:22
DX: R11.2 Nausea with vomiting, unspecified (principal); F12.10 Cannabis abuse, uncomplicated; E86.0 Dehydration; Z79.899 Other long term (current) drug therapy
CPT/HCPCS: 36415; 80053; 81001; 83690; 85025; 96361; 96374; 96375; 99283; J1200; J1885; J2765; J7030

== ENCOUNTER 2019-12-22 18:15 | Emergency (ER) | payer SELFPAY ==
[2019-12-22 18:38] LABS: Basophils % (Auto) 1.1 % (0.0-1.8); Eosinophils # (Auto) 0.3 K/mm3 (0.0-0.4); Eosinophils % (Auto) 7.6 % (0.0-4.3); Hematocrit 43.4 % (35.5-45.6); Hemoglobin 14.9 gm/dl (11.8-15.2); Lymphocytes # (Auto) 1.9 K/mm3 (1.2-5.4); Lymphocytes % (Auto) 49.1 % (13.4-35.0); Mean Corpuscular HGB Conc 34 % (32-34); Mean Corpuscular Volume 85 fl (84-94); Monocytes # (Auto) 0.2 K/mm3 (0.0-0.8); Monocytes % (Auto) 3.8 % (0.0-7.3); Platelet Count 222 K/mm3 (140-440); Red Cell Distribution Width 14.1 % (13.2-15.2)
[2019-12-22 18:59] LABS: Alanine Aminotransferase 27 units/L (7-56); BUN/Creatinine Ratio 9; Blood Urea Nitrogen 7 mg/dL (9-20); Calcium 9.2 mg/dL (8.4-10.2); Hemolysis Index 15
[2019-12-22] MEDS ORDERED: METOCLOPRAMIDE 10 MG/2 ML INJ IV ONE (23:36)
[2019-12-22] MEDS ORDERED: SODIUM CHLORIDE 0.9% 1000 ML 1,000 ML IV ONE (23:36)
[2019-12-22] MEDS ORDERED: FAMOTIDINE 20 MG/2 ML INJ IV ONE (23:37)
[2019-12-22] MEDS ORDERED: DICYCLOMINE 20 MG TAB PO ONE (23:47)
--- NOTE | 2019-12-22 23:47 | Emergency Department Report ---
HPI - General Chief Complaint: Abdominal Pain Time Seen by Provider: 12/22/19 23:30 - HPI HPI: This is a 24-year-old male presents to the emergency department with a complaint of generalized abdominal pain, nausea and vomiting that has been going on for t he past few days. Patient has a history of gastric ulcers and EtOH abuse and admits to drinking over the past few days. He denies any current intoxication. Based on the patient's previous medical records, he does appear to have a history of cyclic vomiting syndrome and cannabis abuse as well. The patient was here for similar symptoms in October of this year. He says he took some type of medication or treatment prior to arrival today but is unable to tell me the name of this medication. He denies having a primary care physician or hired hand. No recent travel or sick contacts at home. ED Past Medical Hx - Past Medical History Previous Medical History?: Yes Additional medical history: Stomach Ulcer - Social History Smoking Status: Never Smoker Substance Use Type: Alcohol, Marijuana - Medications Home Medications: Home Medications Medication Instructions Recorded Confirmed Last Taken Type Cetirizine HCl [ZyrTEC] 10 mg PO QAM #5 capsule 12/03/16 Unknown Rx predniSONE [Deltasone] 50 mg PO QDAY #5 tab 12/03/16 Unknown Rx Omeprazole 40 mg PO DAILY #30 capsule. 01/01/19 Unknown Rx Docusate Sodium [Colace] 100 mg PO BID PRN 10 Days #20 07/20/19 Unknown Rx capsule Dicyclomine [Bentyl] 20 mg PO Q6H PRN #30 tablet 10/08/19 Unknown Rx Famotidine [Pepcid] 20 mg PO BID #60 tablet 10/08/19 Unknown Rx Dicyclomine [Bentyl] 10 mg PO QID #12 capsule 12/23/19 Unknown Rx Famotidine [Pepcid] 20 mg PO BID 10 Days #20 tablet 12/23/19 Unknown Rx Ondansetron [Zofran ODT TAB] 4 mg PO Q6HR PRN #15 tab.rapdis 12/23/19 Unknown Rx ED Review of Systems ROS: Stated complaint: ABD PAIN Other details as noted in HPI Comment: All other systems reviewed and negative Constitutional: denies: chills, fever Eyes: denies: eye pain, vision change ENT: denies: ear pain, throat pain Respiratory: denies: cough, shortness of breath Cardiovascular: denies: chest pain, palpitations Gastrointestinal: abdominal pain, nausea, vomiting Genitourinary: denies: dysuria, discharge Musculoskeletal: denies: back pain, arthralgia Skin: denies: rash, lesions Neurological: denies: headache, weakness Physical Exam - Physical Exam Vital Signs: Vital Signs 12/22/19 18:19 Temperature 98.2 F Pulse Rate 94 H Respiratory 20 Rate Blood Pressure 136/93 O2 Sat by Pulse 100 Oximetry Physical Exam: GENERAL: The patient is well-developed well-nourished. HENT: Normocephalic. Atraumatic. Patient has moist mucous membranes. EYES: Extraocular motions are intact. NECK: Supple. Trachea is midline. CHEST/LUNGS: Clear to auscultation. There is no respiratory distress noted. HEART/CARDIOVASCULAR: Regular. There is no tachycardia. ABDOMEN: Abdomen is soft. Mild generalized abdominal tenderness to palpation. No guarding. Patient has normal bowel sounds. There is no abdominal distention. SKIN: Skin is warm and dry. NEURO: The patient is awake, alert, and oriented. The patient is cooperative. Normal speech. MUSCULOSKELETAL: There is no tenderness or deformity. ED Course Vital Signs 12/22/19 18:19 Temperature 98.2 F Pulse Rate 94 H Respiratory 20 Rate Blood Pressure 136/93 O2 Sat by Pulse 100 Oximetry ED Medical Decision Making - Lab Data Result diagrams: 12/22/19 18:28 12/22/19 18:28 - Radiology Data Radiology results: image reviewed interpreted by me: Abdominal x-ray shows nonspecific nonobstructive bowel gas - Medical Decision Making This patient presents with a complaint of generalized abdominal pain, nausea and vomiting. However there has been no further nausea and vomiting since arrival to the emergency department. The patient says he has been drinking water while out in the emergency department waiting room. On examination he has some mild generalized abdominal tenderness to palpation but no guarding. The abdomen is soft, nondistended and nontoxic in appearance. Abdominal x-ray shows nonspecific nonobstructive bowel gas. The patient's labs are mostly unremarkable including CBC and CMP, but he does have an elevated blood alcohol level of 0.16. His vital signs have been reassuring throughout his ED course. The patient was given some IV fluid resuscitation, a dose of IV antiemetics. Patient has remained in the emergency department for more than 4 hours after the blood alcohol level was obtained and he should be down below the legal limit of 0.08. Patient be discharged home with Pepcid, Bentyl and Zofran, and has been given a referral for outpatient gastroenterology. He was able to pass an oral challenge here. He will return to the emergency department with any worsening of his symptoms or with any acute distress. Critical Care Time: No Critical care attestation.: If time is entered above; I have spent that time in minutes in the direct care of this critically ill patient, excluding procedure time. ED Disposition Clinical Impression: Nausea & vomiting Qualifiers: Vomiting type: unspecified Vomiting Intractability: non-intractable Qualified Code(s): R11.2 - Nausea with vomiting, unspecified Alcohol intoxication Qualifiers: Complication of substance-induced condition: uncomplicated Qualified Code(s): F10.920 - Alcohol use, unspecified with intoxication, uncomplicated Abdominal pain Qualifiers: Abdominal location: generalized Qualified Code(s): R10.84 - Generalized abdominal pain Disposition: TO HOME OR SELFCARE Is pt being admited?: No Condition: Stable Instructions: Alcohol Intoxication (ED), Abuse of Alcohol (ED), Acute Nausea and Vomiting (ED), Abdominal Pain (ED) Additional Instructions: Please follow-up with a primary care physician in the next few days. I am also giving you a referral for a local hired hand, Dr. Gomez, to follow-up regarding your abdominal pains. Please avoid any further alcohol use/abuse, especially with your history of ulcers. Take the medication as prescribed. Return to the emergency department with any worsening of your symptoms, new or concerning symptoms not addressed during this current emergency department visit, or with any acute distress. Prescriptions: Dicyclomine [Bentyl] 10 mg PO QID #12 capsule Famotidine [Pepcid] 20 mg PO BID 10 Days #20 tablet Ondansetron [Zofran ODT TAB] 4 mg PO Q6HR PRN #15 tab.rapdis PRN Reason: Nausea Referrals: PRIMARY CARE,MD [Primary Care Provider] - 2-3 Days DOMENIC GOMEZ MD [Staff Physician] - 2-3 Days Time of Disposition: 03:12
--- NOTE | 2019-12-23 00:09 | XRay Report ---
ABDOMEN 2 VIEW(S) INDICATION / CLINICAL INFORMATION: Abd pain. COMPARISON: None available. FINDINGS: TUBES / LINES: None. BOWEL GAS PATTERN/EXTRALUMINAL GAS: No significant abnormality. No free air. ADDITIONAL FINDINGS: No significant additional findings. IMPRESSION: 1. No acute abnormality. Signer Name: Mac Leal MD Signed: 12/23/2019 12:05 AM Workstation Name: [id number]
[2019-12-23 04:17] VITALS: BP 119/79
== END 2019-12-23 04:00 | disposition home or self-care (01) ==
LOC: ED 18:15
DX: R10.84 Generalized abdominal pain (principal); R11.2 Nausea with vomiting, unspecified; F10.129 Alcohol abuse with intoxication, unspecified; F12.10 Cannabis abuse, uncomplicated; Z79.899 Other long term (current) drug therapy
CPT/HCPCS: 36415; 74019; 80053; 83690; 85025; 96361; 96374; 96375; 99284; J2765; J7030; 80320; G0480